=== PATIENT | male | born 1980 | race Caucasian/White ===

== ENCOUNTER 2016-06-18 12:17 | Emergency (ER) | payer OTHER ==
--- NOTE | 2016-06-18 12:52 | ED ---
ENT HPI - General Stated complaint: poss strep Time Seen by Provider: 06/18/16 12:40 Source: patient, RN notes reviewed Mode of arrival: ambulatory Limitations: no limitations - History of Present Illness Initial comments: 35-year-old male presents emergency Department chief complaint sore throat 3 days. Patient states that her systolic. Patient has no difficulty swallow. Patient also complains of mild congestion, right ear pain. Patient states that he feels like he has strep. Patient states that he's had a low-grade temp, felt "clammy. Patient denies any facial swelling, swelling underneath his jaw. Patient states he has no dentition. Patient denies any nausea, vomiting, diarrhea constipation. Denies any fatigue. Patient states she's been taken or , medications no relief. Patient offers no other complaints. - Related Data Home Medications Medication Instructions Recorded Confirmed ALPRAZolam [Xanax] 0.5 mg PO HS PRN 11/06/15 11/06/15 Ibuprofen [Motrin] 800 mg PO Q6HR PRN 11/06/15 11/06/15 Lidocaine HCl [Aspercreme] 1 applic TOPICAL BID PRN 11/06/15 11/06/15 Previous Rx's Medication Instructions Recorded Cyclobenzaprine [Flexeril] 10 mg PO TID #20 tab 11/06/15 Dexamethasone 0.75 mg PO DIRECTED #12 tablet 11/06/15 Ibuprofen [Motrin] 800 mg PO Q6HR PRN #30 tab 11/06/15 Baclofen [Lioresal] 10 mg PO TID PRN #24 tablet 11/14/15 Amoxicillin 500 mg PO Q8H #30 capsule 06/18/16 Lidocaine Viscous [Xylocaine 5 ml MUCOUS MEM TID PRN #100 bottle 06/18/16 Viscous 2%] Allergies Allergy/AdvReac Type Severity Reaction Status Date / Time latex Allergy Rash/Hives Verified 11/14/15 14:04 morphine Allergy Nausea & Verified 11/14/15 14:04 Vomiting & Diarrhea shellfish derived [Shellfish] Allergy Anaphylaxis Verified 11/14/15 14:04 tetanus and diphtheria Allergy Unknown Verified 11/14/15 14:04 toxoids [tetanus & diphtheria toxoids] Review of Systems ROS Statement: Those systems with pertinent positive or pertinent negative responses have been documented in the HPI. ROS Other: All systems not noted in ROS Statement are negative. Past Medical History Past Medical History: No Reported History History of Any Multi-Drug Resistant Organisms: None Reported Past Surgical History: Orthopedic Surgery Additional Past Surgical History / Comment(s): right hand surgery Past Psychological History: Anxiety Smoking Status: Current some day smoker Past Alcohol Use History: None Reported Past Drug Use History: None Reported General Exam General appearance: alert, in no apparent distress Head exam: Present: atraumatic, normocephalic, normal inspection Eye exam: Present: normal appearance, PERRL, EOMI. Absent: scleral icterus, conjunctival injection, periorbital swelling ENT exam: Present: mucous membranes moist, TM's normal bilaterally, normal external ear exam, other (No submandibular swelling no submandibular tenderness) . Absent: normal exam, normal oropharynx (Posterior pharynx erythematous mild edema) Neck exam: Present: normal inspection, full ROM. Absent: tenderness, meningismus, lymphadenopathy Respiratory exam: Present: normal lung sounds bilaterally. Absent: respiratory distress, wheezes, rales, rhonchi, stridor Cardiovascular Exam: Present: regular rate, normal rhythm, normal heart sounds. Absent: systolic murmur, diastolic murmur, rubs, gallop, clicks GI/Abdominal exam: Present: soft, normal bowel sounds. Absent: distended, tenderness, guarding, rebound, rigid Medical Decision Making - Medical Decision Making 35-year-old male presented for sore throat 2 days. Patient we treated for strep pharyngitis. Patient has no dentition no evidence of dental infection or any concern for bloodwork's disease. Patient will be started on amoxicillin. Patient was given viscous lidocaine for a sore throat. Return parameters were discussed. Disposition Clinical Impression: Strep pharyngitis Disposition: HOME SELF-CARE Condition: Stable Instructions: Strep Throat (ED) Additional Instructions: Please return to the Emergency Department if symptoms worsen or any other concerns. Prescriptions: Amoxicillin 500 mg PO Q8H #30 capsule Lidocaine Viscous [Xylocaine Viscous 2%] 5 ml MUCOUS MEM TID PRN #100 bottle PRN Reason: Pain Time of Disposition: 12:52
[2016-06-18 12:56] VITALS: BP 140/88; PULSE 94; RESP 18; TEMP 98.2
== END 2016-06-18 13:06 | disposition home or self-care (01) ==
LOC: EC 12:17
DX: J02.0 Streptococcal pharyngitis (principal); Z91.040 Latex allergy status; Z88.7 Allergy status to serum and vaccine; Z88.5 Allergy status to narcotic agent; Z91.013 Allergy to seafood; F17.200 Nicotine dependence, unspecified, uncomplicated
CPT/HCPCS: 99282

== ENCOUNTER 2016-09-20 12:22 | Emergency (ER) | payer OTHER ==
[2016-09-20 12:32] VITALS: BP 133/92; PULSE 102; RESP 20; TEMP 97.9
[2016-09-20] MEDS ORDERED: IBUPROFEN 800 MG TAB PO STA (12:43)
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
== END 2016-09-20 13:12 | disposition left against medical advice (07) ==
LOC: EC 12:22
DX: S91.312A Laceration without foreign body, left foot, initial encounter (principal); F17.200 Nicotine dependence, unspecified, uncomplicated; Z91.040 Latex allergy status; Z88.7 Allergy status to serum and vaccine; Z88.5 Allergy status to narcotic agent; Z91.013 Allergy to seafood; Z53.29 Procedure and treatment not carried out because of patient's decision for other reasons; W26.8XXA Contact with other sharp object(s), not elsewhere classified, initial encounter; Y93.01 Activity, walking, marching and hiking; Y92.832 Beach as the place of occurrence of the external cause
CPT/HCPCS: 99282

== ENCOUNTER 2016-12-26 14:04 | Emergency (ER) | payer OTHER ==
[2016-12-26] MEDS ORDERED: KETOROLAC 30 MG/ML 1 ML VIAL IVP STA (14:15)
[2016-12-26] MEDS ORDERED: ONDANSETRON 4 MG/2 ML VIAL IVP STA (14:15)
[2016-12-26] MEDS ORDERED: SODIUM CHLORIDE 0.9% 2,000 ML IV ONE (14:16)
[2016-12-26] MEDS ORDERED: HYDROmorphone 1 MG/ML 1 ML SYRINGE IVP STA (14:16)
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
[2016-12-26 14:53] LABS: Basophils % (A) 1 %; CH 32.1; CHCM 34.5; Eosinophils # (A) 0.1 k/uL (0-0.7); Eosinophils % (A) 2 %; HCT 47.7 % (39.0-53.0); HDW 2.41; HGB 15.7 gm/dL (13.0-17.5); Luc # (Auto) 0.18; Luc % (Auto) 2; Lymphocytes # (A) 3.1 k/uL (1.0-4.8); Lymphocytes % (A) 42 %; MCH 30.7 pg (25.0-35.0); MCHC 32.8 g/dL (31.0-37.0); MCV 93.5 fL (80.0-100.0); Monocytes # (A) 0.5 k/uL (0-1.0); Monocytes % (A) 6 %; Neutrophils # (A) 3.6 k/uL (1.3-7.7); Neutrophils % (A) 47 %; RDW 14.4 % (11.5-15.5); WBC 7.5 k/uL (3.8-10.6); WBC (Perox) 7.49
[2016-12-26 14:57] LABS: Anion Gap 9 mmol/L; Blood Urea Nitrogen 11 mg/dL (9-20); Calcium 9.1 mg/dL (8.4-10.2); Carbon Dioxide 23 mmol/L (22-30); Chloride 108 mmol/L (98-107); Glucose 103 mg/dL (74-99); Non-African American GFR(MDRD) >60 (>60 ml/min/1.73 sqM); Potassium 3.7 mmol/L (3.5-5.1); Sodium 140 mmol/L (137-145)
--- NOTE | 2016-12-26 15:46 | CT ---
EXAMINATION TYPE: CT renal stones wo con DATE OF EXAM: 12/26/2016 COMPARISON: NONE HISTORY: Hematuria, right flank and right lower quadrant pain. CT DLP: 328.90 mGycm Examination of the solid and hollow viscera is limited given the lack of contrast. FINDINGS: LUNG BASES: No evidence for nodule. No evidence for infiltrate. LIVER/GB: The gallbladder is unremarkable. No space-occupying hepatic lesion. PANCREAS: No pancreatic mass identified. No inflammatory process seen. SPLEEN: No evidence for splenomegaly. No intrasplenic lesions seen. ADRENALS: No adrenal nodules identified. No evidence for thickening. KIDNEYS: 4 mm proximal right ureteral calculus resulting in mild right-sided hydronephrosis. 3 additi onal nonobstructing right renal calculi. No left-sided renal calculi identified. No evidence for aleta d or cystic renal mass. BOWEL: Appendix has a normal appearance. No evidence of bowel obstruction. No inflammatory process. Lymph nodes: No evidence for adenopathy greater than 1 cm. Abdominal aorta: Atheromatous changes seen. No evidence for aneurysm. Genital organs: No significant abnormality. Other: No significant abnormality. IMPRESSION: 4 mm proximal right ureteral calculus resulting in mild right-sided hydronephrosis.
[2016-12-26] MEDS ORDERED: HYDROmorphone 0.5 MG/0.5 ML SYRINGE IVP STA (15:55)
[2016-12-26 16:08] VITALS: TEMP 98.1
[2016-12-26 16:33] LABS: Appearance,Urine Cloudy (Clear); Bilirubin,Urine Negative (Negative); Calcium Oxalate Crystals,Urine Occasional /hpf; Glucose,Urine (UA) Negative (Negative); Ketones,Urine Negative (Negative); Leukocyte Esterase,Urine Trace (Negative); Mucus,Urine Moderate /hpf; Nitrite,Urine Negative (Negative); PH, Urine 5.5 (5.0-8.0); Particle Count 4951; Protein,Urine 1+ (Negative); RBC,Urine 152 /hpf (0-5); Specific Gravity,Urine 1.024 (1.001-1.035); Squamous Epithelial Cell,Urine 1 /hpf (0-4); UA Billing (MACRO vs. MICRO) MICRO; WBC,Urine 6 /hpf (0-5)
[2016-12-26 17:37] VITALS: BP 119/76; PULSE 80; RESP 16
== END 2016-12-26 17:37 | disposition home or self-care (01) ==
LOC: EC 14:04
DX: N20.1 Calculus of ureter (principal); R31.9 Hematuria, unspecified; F17.200 Nicotine dependence, unspecified, uncomplicated; Z87.442 Personal history of urinary calculi; Z88.5 Allergy status to narcotic agent; Z88.7 Allergy status to serum and vaccine; Z91.040 Latex allergy status; Z91.013 Allergy to seafood
CPT/HCPCS: 99284 ×2; 96374 ×2; 96375 ×3; 96376 ×2; 96361 ×4; 36415; 80048; 85025; 81001; 74150; J2405; J1885; J1170 ×2